=== PATIENT | female | born 1980 | race Caucasian/White ===

== ENCOUNTER → 2017-12-18 | Outpatient (CLI) | payer OTHER | END | disposition home or self-care (01) | LOC: C.PAPS 13:20 | PROVIDERS: ATTEND Obstetrics & Gynecology | DX: Z01.419 Encounter for gynecological examination (general) (routine) without abnormal findings (principal) ==

== ENCOUNTER → 2018-02-12 | Outpatient (CLI) | payer OTHER ==
--- NOTE | 2018-02-12 11:19 | DIAGNOSTIC IMAGING REPORT ---
HYSTEROSALPINGOGRAM CLINICAL HISTORY: Z31.41 INFERTILITY TESTING *HARDYK TO DO* COMPARISON STUDY: No previous studies for comparison. FINDINGS: Fluoroscopic assistance for hysterosalpingogram was performed. 42 seconds of fluoroscopic time was utilized. Contrast was instilled into the uterus. Both fallopian tubes filled. There is free spillage bilaterally. No uterine filling defects are visualized. IMPRESSION: Both fallopian tubes were patent with free spillage bilaterally. Electronically signed by: Geovani Arevalo M.D. 02/12/2018 11:18 AM Dictated Date/Time: 02/12/2018 11:16 AM
--- NOTE | 2018-02-12 12:05 | OPERATIVE REPORT ---
DATE OF OPERATION: 02/12/2018 PREOPERATIVE DIAGNOSIS: Female infertility. POSTOPERATIVE DIAGNOSIS: Same. PROCEDURE: Hysterosalpingogram. SURGEON: Dr. Mcgill. ESTIMATED BLOOD LOSS: None. RADIOLOGIST: Dr. Arevalo. INDICATIONS FOR PROCEDURE: Chris is a 37-year-old who presents for hystersalpingogram ordered by [facility]. Her name and birthdate were identified and a time out. She did not require preoperative antibiotics per the ordering physician. She is on day #7 to #8 of her period. DESCRIPTION OF PROCEDURE: The patient was placed in the frog leg position. A speculum was placed. The cervix was cleaned with Betadine. The catheter was introduced into the cervix. The radiologist was called for. The hysterosalpingogram dye was injected into the uterus until adequate pictures were taken by the radiologist and then the procedure was terminated. All instruments were removed from the vagina. Hemostasis noted to be excellent. The patient tolerated the procedure well and was discharged home. I attest to the content of the Intraoperative Record and any orders documented therein. Any exception s are noted below.
[2018-02-12 12:30] LABS: HEMATOCRIT 36.4 % (37-47); HEMOGLOBIN 12.6 g/dL (12.0-16.0); MEAN CELL VOLUME 90.8 fL (80-100); MEAN CORPUSCULAR HEMOGLOBIN 31.4 pg (25-34); MEAN CORPUSCULAR HGB CONC 34.6 g/dl (32-36); MEAN PLATELET VOLUME 10.5 fL (7.4-10.4); PLATELET COUNT 295 K/uL (130-400); RED CELL DISTRIBUTION WIDTH CV 13.2 % (11.5-14.5); RED CELL DISTRIBUTION WIDTH SD 43.9 fL (36.4-46.3); WHITE BLOOD COUNT 3.94 K/uL (4.8-10.8)
== END | disposition home or self-care (01) ==
LOC: C.RAD 10:31
PROVIDERS: ATTEND Obstetrics & Gynecology
DX: Z31.41 Encounter for fertility testing (principal); Z01.83 Encounter for blood typing; Z11.59 Encounter for screening for other viral diseases; Z11.3 Encounter for screening for infections with a predominantly sexual mode of transmission; Z11.4 Encounter for screening for human immunodeficiency virus [HIV]; Z13.0 Encounter for screening for diseases of the blood and blood-forming organs and certain disorders involving the immune mechanism; Z13.21 Encounter for screening for nutritional disorder

== ENCOUNTER → 2018-02-26 | Outpatient (CLI) | payer OTHER | END | disposition home or self-care (01) | LOC: C.LAB1850 15:09 | PROVIDERS: ATTEND Obstetrics & Gynecology Reproductive Endocrinology | DX: Z11.59 Encounter for screening for other viral diseases (principal) ==